=== PATIENT | male | born 1965 | race Caucasian/White ===

== ENCOUNTER → 2025-05-03 | Outpatient (CLI) | payer OTHER, SELFPAY ==
--- NOTE | 2025-05-03 16:19 | MRI_ITS ---
PROCEDURE: SPINE LUMBAR (ROUTINE) 05/03/2025 REASON FOR EXAM: Lumbar radiculopathy TECHNIQUE: Procedure Code: MRISPL Modality: MR Procedure: SPINE LUMBAR (ROUTINE) COMPARISON: None available. FINDINGS: For the purposes of this report, the most caudal rectangular vertebral body will be designated L5. The next most caudal trapezoidal shaped vertebral body will be designated S1. The intervening disc at the lumbosacral angle is designated L5-S1. The normal lumbar lordosis is maintained. The lumbar vertebral bodies are normal in height. The lumbar vertebral bodies are normal in alignment. No bone marrow replacing lesion in the lumbar spine. Multilevel disc desiccation. Intervertebral disc space height loss at L5-S1. Large anterior osteophyte at L5-S1. Small Schmorl's nodes at the superior and inferior endplates of T12 and superior endplate of L2 vertebral bodies. There is no evidence of signal abnormality in the imaged distal spinal cord. The conus medullaris terminates at the level of T12-L1. T12-L1: No significant spinal canal stenosis or neural foraminal narrowing. L1-L2: Disc bulge, bilateral facet arthrosis, and ligamentum flavum hypertrophy contribute to mild spinal canal stenosis. No significant neural foraminal narrowing. L2-L3: Disc bulge, bilateral facet arthrosis, and ligamentum flavum hypertrophy contribute to mild spinal canal stenosis. No significant neural foraminal narrowing. L3-L4: Disc bulge flattens the ventral thecal sac. No significant neural foraminal narrowing. L4-L5: Disc bulge flattens the ventral thecal sac. Bilateral facet arthrosis and ligamentum flavum hypertrophy. No significant neural foraminal narrowing. L5-S1: Disc bulge, bilateral facet arthrosis, and ligamentum flavum hypertrophy. No significant spinal canal stenosis. Moderate right and [id number] left neural foraminal narrowing. Type 2 Modic endplate changes. The posterior paraspinal muscles are intact. MRI/Spine Lumbar (Routine) IMPRESSION: Lumbar spondylosis most prominent at L5-S1 where there is moderate right neural foraminal stenosis without high-grade spinal canal stenosis. Additional details as discussed above. Reading Location: [id number]
== END | disposition home or self-care (01) ==
LOC: MRI 16:15
PROVIDERS: PCP Family Medicine; Referring Provider Family Medicine; Visit Provider Family Medicine
DX: M54.16 Radiculopathy, lumbar region (principal)
CPT/HCPCS: 72148